=== PATIENT | female | born 1995 | race Two or more races ===

== ENCOUNTER 2023-05-25 16:25 | Observation (INO) | payer MEDICAID ==
[2023-05-25] MEDS ORDERED: PREN-96 PO (17:17)
== END 2023-05-25 17:42 | disposition home or self-care (01) ==
LOC: LDRP 16:25
PROVIDERS: ADMIT Obstetrics & Gynecology; ATTEND Obstetrics & Gynecology
DX: O36.8130 Decreased fetal movements, third trimester, not applicable or unspecified (principal); O62.9 Abnormality of forces of labor, unspecified; O26.893 Other specified pregnancy related conditions, third trimester; O99.891 Other specified diseases and conditions complicating pregnancy; R10.30 Lower abdominal pain, unspecified; R51.9 Headache, unspecified; Z3A.39 39 weeks gestation of pregnancy
CPT/HCPCS: 59025; 76818; 81002; 94760; G0378